=== PATIENT | female | born 1990 | race Caucasian/White ===

== ENCOUNTER 2021-02-04 14:26 | Outpatient (REF) | payer OTHER, SELFPAY ==
[2021-02-05 09:44] LABS: BV Int Neg Control Negative (Negative); BV Int Pos Control Positive (Positive)
== END 2021-02-04 14:27 | disposition home or self-care (01) ==
LOC: HO.LAB 14:26
PROVIDERS: Visit Provider Advanced Practice Midwife
DX: Z01.411 Encounter for gynecological examination (general) (routine) with abnormal findings (principal); N89.8 Other specified noninflammatory disorders of vagina
CPT/HCPCS: 87480; 87510; 87660; 88142

== ENCOUNTER 2022-02-06 15:24 | Outpatient (REF) | payer OTHER, SELFPAY ==
[2022-02-07 08:34] LABS: BV Int Neg Control Negative (Negative); BV Int Pos Control Positive (Positive)
== END 2022-02-06 15:25 | disposition home or self-care (01) ==
LOC: HO.LAB 15:24
PROVIDERS: Visit Provider Advanced Practice Midwife
DX: N76.0 Acute vaginitis (principal)
CPT/HCPCS: 87480; 87510; 87660

== ENCOUNTER 2023-02-11 14:28 | Outpatient (REF) | payer OTHER, SELFPAY ==
[2023-02-14 00:59] LABS: HPV mRNA E6/E7 rflx Not Detected (Not Detected)
== END 2023-02-11 14:29 | disposition home or self-care (01) ==
LOC: HO.LNP 14:28
PROVIDERS: Visit Provider Advanced Practice Midwife
DX: Z01.419 Encounter for gynecological examination (general) (routine) without abnormal findings (principal); R10.9 Unspecified abdominal pain; R21 Rash and other nonspecific skin eruption; Z97.5 Presence of (intrauterine) contraceptive device
CPT/HCPCS: 87624; 88142

== ENCOUNTER 2023-02-27 10:31 | Outpatient (REF) | payer OTHER, SELFPAY ==
--- NOTE | ~2023-02-27 | US_ITS ---
EXAMINATION: US PELVIS CLINICAL INFORMATION: Pelvic and perineal pain. COMPARISON: 02/10/2020 TECHNIQUE: Ultrasound of the pelvis is performed using both transabdominal and transvaginal transducers along with Doppler. Transvaginal imaging is performed due to inadequate visualization transabdominally. FINDINGS: UTERUS: The uterus is anteverted and measures 8.0 x 4.3 x 5.2 cm. The double wall endometrial thickness is 8 mm. The uterus is smooth in contour and has normal myometrial echogenicity. No visible fibroid. Nabothian cysts present. IUD seen in place without abnormality appreciated. ADNEXA: Both ovaries are visualized. There is normal color flow to the adnexa. There is no ovarian torsion. There is a small to moderate amount of fluid seen within the cul-de-sac. Right ovary measures 2.9 x 2.8 x 2.6 cm. Volume of 11.5 mL. No right adnexal abnormality. Left ovary measures 3.2 x 3.4 x 2.5 cm. Volume of 14.2 mL. There is a simple cyst measuring 2.0 x 1.7 x 2.0 cm in size for which no followup is recommended. US/US pelvic and transvaginal IMPRESSION: Small to moderate amount of fluid within the cul-de-sac. Simple appearing left ovarian cyst. Intrauterine device appears in good position.
== END 2023-02-27 10:32 | disposition home or self-care (01) ==
LOC: HO.US 10:31
PROVIDERS: Visit Provider Advanced Practice Midwife
DX: R10.2 Pelvic and perineal pain (principal)
CPT/HCPCS: 76830; 76856

== ENCOUNTER 2023-04-21 09:20 | Outpatient (AMB) | payer OTHER, SELFPAY ==
[2023-04-21 09:23] VITALS: BP 96/60; BMI 27.2
--- NOTE | 2023-04-21 09:23 | A.OFFVIS_ITS ---
Intake Vital Signs 04/21/23 09:23 Height 5 ft 6.9 in Weight 173 lb BMI 27.2 BP 96/60 Intake Visit Reasons: Ultrasound Results Intake Note: The patient agreed to use of a medical transcription radiology during this encounter. Scribed for JOSE Ludwig by Aidee Bhakta medical transcription radiology, on 04/21/2023. Allergies No Known Allergies [No Known Allergies*] Allergy (Verified 04/21/23 09:26) Is last menstrual period known: Yes Last menstrual period: 03/28/23 HPI HPI Comments History of Present Illness Details Patient is here for US results due to a history of right sided lower abdominal pain. She reports right sided pain at times is very intense. She denies any constipation, GI changes, n/v, fever. She feels this could be her appendix. She has booked a follow up with her PCP for these concerns. PFSH Surgical History Hx of section Hx of hand surgery Family History Maternal Grandmother Diabetes Hypertension Social History Alcohol intake: current Alcohol intake frequency: holidays/special occasions only Patient Tobacco Use Status: Never used Tobacco Current occupational status: employed Current occupational exposures/hazards: No (right handed) Sexual orientation: Straight/Heterosexual Gender identity: Female Female Reproductive History Menstrual Date of last menstrual period: 03/28/23 Physical Exam Vital Signs: Last Vital Signs BP 96/60 04/21/23 09:23 BMI result Body Mass Index 27.2 Const General: cooperative, healthy appearing, comfortable, no acute distress, well developed, alert and awake Results Reviewed Results Reviewed: EXAMINATION:? US PELVIS CLINICAL INFORMATION:? Pelvic and perineal pain. COMPARISON: 02/10/2020 TECHNIQUE: Ultrasound of the pelvis is performed using both transabdominal and transvaginal transducers along with Doppler. Transvaginal imaging is performed due to inadequate visualization transabdominally. FINDINGS: UTERUS: The uterus is anteverted and measures 8.0 x 4.3 x 5.2 cm. The double wall endometrial thickness is 8 mm.? The uterus is smooth in contour and has normal myometrial echogenicity. No visible fibroid. Nabothian cysts present. IUD seen in place without abnormality appreciated. ADNEXA: Both ovaries are visualized. There is normal color flow to the adnexa. There is no ovarian torsion.? There is a small to moderate amount of fluid seen within the cul-de-sac. Right ovary measures 2.9 x 2.8 x 2.6 cm. Volume of 11.5 mL. No right adnexal abnormality. Left ovary measures 3.2 x 3.4 x 2.5 cm. Volume of 14.2 mL. There is a simple cyst measuring 2.0 x 1.7 x 2.0 cm in size for which no followup is recommended. US/US pelvic and transvaginal IMPRESSION: Small to moderate amount of fluid within the cul-de-sac. ? Simple appearing left ovarian cyst. ? Intrauterine device appears in good position. Assessment & Plan Assessment & Plan (1) Encounter to discuss test results: Code(s): Z71.2 - Person consulting for explanation of examination or test findings Plan: Discussed: US findings: Small to moderate amount of fluid within the cul-de-sac. Simple appearing left ovarian cyst-no need for a follow up on this cyst. Intrauterine device appears in good position. All of her questions and concerns were addressed to the best of my ability and shared decision making. She is agreeable to plan of care. (2) Pelvic pain: Code(s): R10.2 - Pelvic and perineal pain Plan: Follow up with PCP regarding pelvic pain. (3) Ovarian cyst: Code(s): N83.209 - Unspecified ovarian cyst, unspecified side (4) IUD surveillance: Code(s): Z30.431 - Encounter for routine checking of intrauterine contraceptive device Coding Level of Care Code Est Pt Level 3 (96818) Diagnoses Encounter to discuss test results Z71.2 Pelvic pain R10.2 Ovarian cyst N83.209 IUD surveillance Z30.431
== END 2023-04-21 09:49 | disposition home or self-care (01) ==
LOC: HO.HWS 09:20
PROVIDERS: Visit Provider Advanced Practice Midwife
DX: Z71.2 Person consulting for explanation of examination or test findings (principal); R10.2 Pelvic and perineal pain; N83.209 Unspecified ovarian cyst, unspecified side; Z30.431 Encounter for routine checking of intrauterine contraceptive device
CPT/HCPCS: 99213

== ENCOUNTER → 2023-04-21 09:20 | Outpatient (BNVA) | payer OTHER, SELFPAY | PROVIDERS: Visit Provider Advanced Practice Midwife | DX: Z71.2 Person consulting for explanation of examination or test findings (principal); R10.2 Pelvic and perineal pain; N83.202 Unspecified ovarian cyst, left side; Z30.431 Encounter for routine checking of intrauterine contraceptive device | CPT/HCPCS: 99212 ==

== ENCOUNTER 2023-04-29 08:32 | Outpatient (AMB) | payer OTHER, SELFPAY ==
[2023-04-29 08:35] VITALS: BP 98/54; PULSE 60; O2SAT 98; BMI 26.9
--- NOTE | 2023-04-29 08:35 | A.OFFPC_ITS ---
Vital Signs 04/29/23 08:35 Height 5 ft 6.9 in Weight 171 lb BMI 26.9 BP 98/54 L Blood Pressure Location Lt brachial Position Sitting Pulse 60 Pulse Source Pulse Oximeter Temp Source Skin Pulse Oximetry (%) 98 Oxygen Delivery Method Room Air Intake Visit Reasons: New patient-requesting physical Agency Service Coordinator Required: No Allergies No Known Allergies [No Known Allergies*] Allergy (Verified 04/29/23 08:43) Medication List - Last Reconciled 04/29/23 by VALENTINO Tamez clotrimazole 1% 1 appl topical BID copper (ParaGard T 380A) intrauterine Tobacco use date assessed: 04/29/23 Dental Screening Dental Screen Date: 04/29/23 Did you have a dental visit in the last 12 months?: Yes Did you have a dental problem in the last 6 months where you did not have access to dental care?: No Was dental information given to patient?: Patient has dentist HPI New patient-requesting physical HPI Details Patient is a 33-year-old female presents today for physical exam as a new patient. Previous PCP in [place] 3 years ago. Pap smear 01/2023 with [facility]. Patient has declined tetanus vaccine. Patient reports since giving to her children she started with low blood pressures intermittently, reports intermittent dizziness with low blood pressure. Denies shortness of breath, chest pain or dizziness in the office today. Reports intermittent left-sided chest pains that are random for the past 6 months. In addition, patient reports right lower quadrant intermittent pain for the past 6 months now, reports she was seen by her progressive care manager and she was told she has left ovary cyst. Denies any fever, chills, nausea/vomiting, diarrhea/constipation. Reports pain is not daily, sometimes no pain for weeks. Although feels pain intermittently in right lower quadrant. Denies any abdominal pain in the office today. PFSH Surgical History Hx of section Hx of hand surgery Family History Maternal Grandmother Diabetes Hypertension Social History Alcohol intake: current Alcohol intake frequency: holidays/special occasions only Patient Tobacco Use Status: Never used Tobacco Current occupational status: employed Current occupational exposures/hazards: No (right handed) Sexual orientation: Straight/Heterosexual Gender identity: Female Cognitive needs: No Hearing needs: No Vision needs: No Questionnaire PHQ-9 Over the last 2 weeks, how often have you been bothered by any of the following problems? 1. Little interest or pleasure in doing things: not at all 2. Feeling down, depressed, or hopeless: not at all 3. Trouble falling or staying asleep, or sleeping too much: not at all 4. Feeling tired or having little energy: not at all 5. Poor appetite or overeating: not at all 6. Feeling bad about yourself - or that you are a failure or have let yourself or your family down: not at all 7. Trouble concentrating on things, such as reading the newspaper or watching television: not at all 8. Moving or speaking so slowly that other people could have noticed. Or the opposite - being so fidgety or restless that you have been moving around a lot more than usual: not at all 9. Thoughts that you would be better off or of hurting yourself in some way: not at all Total score: 0 Depression Screening Interpretation: Negative 06243 - PHQ-9 Billing: Yes Source: Developed by Drs. Jim Simon, Nicole Herrera, Anil Whitmore and colleagues, with an educational melissa from [employer]. Thrive Questionnaire Date Thrive assessed: 04/29/23 I am a: Patient What is your living situation today?: I have a steady place to live Within the past 12 months, did the food you bought not last and you didn't have the money to get more?: Never true Within the past 12 months, did you worry whether your food would run out before you got money to buy more?: Never true Currently or been in a relationship where the following occur: no concerns reported AUDIT C Alcohol Use Questionnaire (AUDIT-C) 1. How often do you have a drink containing alcohol?: Never 3. How often do you have six or more drinks on one occasion?: Never Total Score: 0 Score Reviewed/Action Taken: No KEV-7 AMB Questionnaire KEV-7 Date KEV - 7 assessed: 04/29/23 Feeling nervous, anxious, or on edge: 0 = Not at all Not being able to stop or control worryin = Not at all Worrying too much about different things: 0 = Not at all Trouble relaxin = Not at all Being so restless that it is hard to sit still: 0 = Not at all Becoming easily annoyed or irritable: 0 = Not at all Feeling afraid as if something awful might happen: 0 = Not at all Total KEV-7 score (0-4 normal; 5-9 mild; 10-14 moderate; 15-21 severe): 0 Source: Developed by Drs. Jim Simon, Nicole Herrera, Anil Whitmore and colleagues, with an educational melissa from [employer]. KEV-7 Assessment Billing KEV-7 Assessment Tool: KEV-7 Assessment 90631 Review of Systems Const Denies body aches, Denies chills, Denies fever(s) and Denies headache(s) Eyes Denies change in vision ENT Denies dizziness, Denies otalgia, Denies headache(s), Denies nasal discharge, Denies sinus pain and Denies sore throat Card Reports as per HPI, Denies chest pain, Denies edema, Denies lightheadedness and Denies dyspnea Resp Denies cough, Denies dyspnea and Denies wheezing GI Reports abdominal pain (Intermittent, not now), Denies constipation, Denies diarrhea, Denies nausea and Denies vomiting Denies dysuria Musc Denies myalgias, Denies numbness and Denies tingling Skin/Breast Denies rash Neuro Denies dizziness, Denies headache(s), Denies numbness and Denies tingling Aller/Immun Denies wheezing Physical exam (Primary Care) Vital Signs: Last Vital Signs Pulse 60 04/29/23 08:35 BP 98/54 L 04/29/23 08:35 Pulse Ox 98 04/29/23 08:35 Oxygen Delivery Method Room Air 04/29/23 08:35 BMI result Body Mass Index 26.9 Tobacco/Smoking Status: Tobacco use Status Tobacco use date assessed 04/29/23 04/29/23 08:40 Patient Tobacco Use Status Never used Tobacco 04/29/23 08:40 PHQ-9: PHQ-9 Score PHQ-9: Total score 0 04/29/23 08:48 Depression Screening Interpretation: Negative Thrive Assessment: Date of Thrive Assessment Date Thrive assessed 04/29/23 04/29/23 08:40 Currently or been in a relationship where the following occur: no concerns reported Const General: cooperative and no acute distress Orientation/consciousness: patient oriented x3 HENMT Head: Yes normocephalic and Yes atraumatic Ears: TM's normal bilaterally Face and sinus: Yes sinuses nontender Mouth: oropharynx normal and moist mucous membranes Throat: Yes posterior oropharynx normal Eyes General: appearance normal, both eyes and all related structures Pupils: Equal, round and reactive pupils present EOM: EOMs intact bilaterally Neck Neck: Yes normal visual inspection, Yes full ROM and Yes no lymphadenopathy Thyroid: Thyroid normal Resp Effort & Inspection: normal respiratory effort and able to speak in complete sentences Auscultation: clear to auscultation bilaterally, no crackles, no rales, no rhonchi and no wheezes Cardio Rate: regular rate Rhythm: regular rhythm Heart sounds: S1 normal heart sound present, S2 normal heart sound present and no murmurs GI Palpation (GI): Soft to palpation, not firm, nontender, no guarding, not rigid, no hepatosplenomegaly and No Rebound tenderness present Auscultation: normal bowel sounds General: No CVA tenderness Back/Spine/Pelvis Back: No CVA tenderness Skin General skin exam: no rashes or lesions noted Neuro General: patient oriented x3 Cranial nerves: Yes Equal, round and reactive pupils present Gait exam (Neuro): Normal gait present Extrem General: Yes full ROM and No edema Assessment and Plan Assessment & Plan (1) Hypotension: Code(s): I95.9 - Hypotension, unspecified Plan: Patient denies shortness of breath, dizziness, lightheadedness, or chest pain in the office today, she reports intermittent left-sided random chest pains Will obtain EKG and refer to Cardiology for an evaluation (2) Adult general medical exam: Code(s): Z00.00 - Encounter for general adult medical examination without abnormal findings Plan: Repeat in 1 year Blood work ordered (3) RLQ abdominal pain: Code(s): R10.31 - Right lower quadrant pain Plan: Physical exam with no acute findings in the office today. Will obtain urgent appendix ultrasound. Signs and symptoms reviewed when to go to the emergency department. Patient agreed with the plan Orders: Orders Vitamin B12 and Folate Today Z00.00 - Encounter for general adult medical examination without abnormal findings Comprehensive [place]. Panel Fast Today Z00.00 - Encounter for general adult medical examination without abnormal findings Lipid Panel Today Z00.00 - Encounter for general adult medical examination without abnormal findings TSH reflex Free T4 Today Z00.00 - Encounter for general adult medical examination without abnormal findings Vitamin D 25-OH Total Today Z00.00 - Encounter for general adult medical examination without abnormal findings Complete Blood Count Auto Diff Today Z00.00 - Encounter for general adult medical examination without abnormal findings US appendix Today R10.31 - Right lower quadrant pain ECG 12 lead EKG Today I95.9 - Hypotension, unspecified Referrals Cardiology Referral I95.9 - Hypotension, unspecified Coding Level of Care Code New Pt Prev Care 18-39yr([id number] Diagnoses Hypotension I95.9 Adult general medical exam Z00.00 RLQ abdominal pain R10.31 Additional Codes KEV-7 Assessment Billing - KEV-7 Assessment Tool: KEV-7 Assessment 00138 ([id number])
== END 2023-04-29 09:03 | disposition home or self-care (01) ==
PROVIDERS: Visit Provider Nurse Practitioner Family
DX: I95.9 Hypotension, unspecified (principal); Z00.00 Encounter for general adult medical examination without abnormal findings; R10.31 Right lower quadrant pain
CPT/HCPCS: 99385

== ENCOUNTER 2023-05-01 09:08 | Outpatient (REF) | payer OTHER, SELFPAY ==
[2023-05-01 09:30] LABS: MANUAL DIFF FLAG NO
[2023-05-01 09:39] LABS: Basophils Absolute Auto 0.1 X10*3/uL (0.0-0.2); Basophils Percent Auto 1.2 % (0-2); Eosinophils Absolute Auto 0.1 X10*3/uL (0.0-0.4); Eosinophils Percent Auto 1.6 % (0-4); Hematocrit 40.6 % (37.0-47.0); Hemoglobin 13.3 g/dl (12.0-16.0); Imm Gran Abs Auto 0.01 X10*3/uL (0.00-0.03); Imm Gran Pct Auto 0.2 % (0.0-0.4); Lymphocytes Absolute Auto 1.3 X10*3/uL (1.2-4.9); Lymphocytes Percent Auto 30.3 % (20-40); Mean Corpuscular HGB Conc 32.8 g/dl (31.0-35.0); Mean Corpuscular Hemoglobin 29.9 pg (27.0-33.0); Mean Corpuscular Volume 91.2 fL (80.0-98.0); Mean Platelet Volume 9.3 fL (9.4-12.3); Monocytes Absolute Auto 0.4 X10*3/uL (0.1-1.2); Monocytes Percent Auto 8.1 % (2-11); Neutrophils Absolute Auto 2.5 x10*3/uL (2.0-8.3); Neutrophils Percent Auto 58.6 % (45-73); Platelet Count 197 X10*3/uL (160-400); Red Blood Count 4.45 X10*6/uL (4.20-5.50); Red Cell Distribution Width 11.9 % (11.0-16.0); White Blood Count 4.3 X10*3/uL (4.8-10.8)
[2023-05-01 10:18] LABS: Alanine Aminotransferase 20 U/L (0-31); Albumin Level 4.7 g/dL (3.5-5.0); Alkaline Phosphatase 59 U/L (39-117); Anion Gap 10 (12-20); Aspartate Amino Transferase 18 U/L (5-31); Bilirubin Total 0.8 mg/dL (0.0-1.0); Blood Urea Nitrogen 13 mg/dL (9-16); Calcium 9.7 mg/dL (8.4-10.2); Carbon Dioxide 28 mmol/L (22-29); Chloride 105 mmol/L (96-108); Cholesterol 188 mg/dL (<200); Estimated Glomerular Filt Rate > 60; Glucose Fasting 90 mg/dL (60-99); HDL Cholesterol 54 mg/dL (>40); LDL Cholesterol Calculated 123 mg/dL (<100); Potassium 4.4 mmol/L (3.3-5.1); Sodium 139 mmol/L (135-145); Total Protein 7.6 g/dL (6.5-8.0); Triglycerides 57 mg/dL (<150)
[2023-05-01 10:42] LABS: TSH reflex Free T4 2.28 uIU/mL (0.32-4.0); Vitamin D 25-OH Total 30.6 ng/mL (>30)
[2023-05-01 10:52] LABS: Folate 14.2 ng/mL (> or = 4.0); Vitamin B12 474 pg/mL (200-900)
== END 2023-05-01 09:09 | disposition home or self-care (01) ==
LOC: HO.LAB 09:08
PROVIDERS: PCP Nurse Practitioner Family; Visit Provider Nurse Practitioner Family
DX: Z00.00 Encounter for general adult medical examination without abnormal findings (principal)
CPT/HCPCS: 36415; 80053; 80061; 82306; 82607; 82746; 84443; 85025

== ENCOUNTER 2023-05-02 09:52 | Outpatient (REF) | payer OTHER, SELFPAY ==
--- NOTE | ~2023-05-02 | US_ITS ---
EXAMINATION: Ultrasound appendix. CLINICAL HISTORY: Right lower quadrant pain comparison: None. TECHNIQUE: Limited ultrasound imaging to the right lower quadrant was performed. FINDINGS: Imaging through the right lower quadrant was performed with no visualization of appendix seen at this time. No solid mass or free fluid. US/US appendix IMPRESSION: Unremarkable ultrasound right lower quadrant. Appendix is not seen.
== END 2023-05-02 09:53 | disposition home or self-care (01) ==
LOC: HO.US 09:52
PROVIDERS: PCP Nurse Practitioner Family; Visit Provider Nurse Practitioner Family
DX: R10.31 Right lower quadrant pain (principal)
CPT/HCPCS: 76705

== ENCOUNTER 2023-07-04 14:31 | Emergency (ER) | payer OTHER, SELFPAY ==
--- NOTE | ~2023-07-04 | CT_ITS ---
EXAMINATION: CT ABDOMEN AND PELVIS WITH CONTRAST CLINICAL INFORMATION: Right lower quadrant tenderness. COMPARISON: Appendiceal ultrasound 05/02/2023. TECHNIQUE: Multidetector volumetric images were obtained from the superior aspect of the liver through the pubic symphysis following administration 85 mL of Omnipaque 350 intravenous contrast. Sagittal and coronal reformatted images were obtained on the technologist's workstation. Oral contrast: No This CT examination was performed using dose optimization techniques as appropriate, variously including the following: *Automated exposure control *Adjustment of mA and/or kV according to patient size (this includes techniques or standardized protocols for targeted exams where dose is matched to indication/reason for exam; i.e. extremities or head) *Use of iterative reconstruction technique DLP: 600 mGy-cm FINDINGS: LUNG BASES: No focal consolidation or pleural effusion. LIVER, GALLBLADDER, AND BILIARY TREE: The liver is normal in size, shape, and attenuation. Multiple liver lesions, some measuring higher than simple fluid in attenuation, not consistent with simple cysts, and others that are too small to characterize for example largest measuring 1.2 cm and 1.3 cm in the left hepatic lobe (3:19 and 3:11). No biliary ductal dilatation is present. The gallbladder is unremarkable with no evidence of radiopaque gallstones, gallbladder wall thickening, or obvious pericholecystic inflammatory changes. PANCREAS: Unremarkable. SPLEEN: Unremarkable. ADRENAL GLANDS: Unremarkable. KIDNEYS AND URETERS: The kidneys are normal in size, shape, and attenuation. A few too small to characterize cortical hypodensities in the left kidney, favoring to represent simple cysts, for which no imaging follow-up is recommended. No hydronephrosis, hydroureter, or calculi seen. No perinephric stranding. BLADDER: Unremarkable. GASTROINTESTINAL TRACT: Slightly prominent fluid-filled distended loops of small bowel with associated mesenteric vasculature engorgement and minimal mesenteric haziness. No disproportionate dilatation to suspect bowel obstruction. Normal appendix. No pericolonic fat stranding or free fluid. ABDOMINAL WALL: No significant hernia is appreciated. LYMPH NODES: No lymphadenopathy. VASCULAR: Normal caliber abdominal aorta. PELVIC VISCERA: IUD centered in the endometrial canal. Symmetric ovaries. OSSEOUS STRUCTURES: Unremarkable. CT/CT abdomen pelvis w IV con IMPRESSION: 1. Mildly prominent fluid-filled distended loops of small bowel with subtle associated mesenteric vasculature engorgement and haziness that could be seen in the context of gastroenteritis. 2. Normal appendix. 3. Multiple liver lesions, some measuring higher than simple fluid in attenuation, not consistent with simple cysts, and others that are too small to characterize. In a patient of this age, these most likely represent benign lesions such as hemangiomas, however further characterization with outpatient MRI abdomen with and without IV contrast is recommended.
[2023-07-04 14:34] VITALS: BP 103/62; PULSE 58; RESP 19; TEMP 36.4; O2SAT 97; BMI 27.7
--- NOTE | 2023-07-04 14:34 | ED.ABDPAIN ---
HPI - Abdominal Pain General Chief Complaint: Abdominal Pain Stated Complaint: abd pain Time Seen by Provider: 07/04/23 16:59 Source: patient Mode of arrival: ambulatory Limitations: no limitations History of Present Illness HPI narrative: Patient is a 33-year-old female with history of hypo tension presenting the emergency department with complaint of intermittent right lower quadrant pain for the last 6 months. Patient has seen her PCP, had a an ultrasound 1 month ago was told she did not have appendicitis. States she also saw her OBGYN and had a pelvic exam and was told everything was normal at that time as well. Denies any concern for STIs or new sexual partners. Denies any abnormal vaginal discharge. Rates current pain at 3 or 4/10 but states pain can become severe at times. She denies any nausea, vomiting, diarrhea, constipation. She denies any dysuria, hematuria, frequency or other urinary symptoms. Denies fevers. Denies any back or flank pain. MD elicited complaint: abdominal pain Onset (ago): month(s) Pain Consistency: intermittent Location: RLQ Severity: mild Pain scale (0-10): 4 Quality: sharp Radiation: none Migration to: no migration Exacerbating factors: nothing Relieving factors: nothing Associated symptoms: denies other symptoms Related Data Home Medications Medication Instructions Recorded Confirmed copper 380 square mm intrauterine intrauterine 02/06/22 04/29/23 device (ParaGard T 380A) Previous Rx's Medication Instructions Recorded clotrimazole 1 % topical cream 1 appl topical BID #45 grams 02/11/23 Allergies Allergy/AdvReac Type Severity Reaction Status Date / Time No Known Allergies Allergy Verified 04/29/23 08:43 [No Known Allergies*] Review of Systems Review of Systems As per HPI. Yes all other systems are reviewed and are negative Constitutional: Reports as per HPI PMFSH Past Medical History Surgical History Hx of section Hx of hand surgery Family History Family History Maternal Grandmother Diabetes Hypertension Social History Social History Alcohol intake: never Patient Tobacco Use Status: Never used Tobacco Smoked in Last 30 Days: No Use of substances other than those prescribed or required for medical reasons: No Advance Directives: No Advance Directives Information Provided: No Patient : No Current occupational status: employed Current occupational exposures/hazards: No (right handed) Sexual orientation: Straight/Heterosexual Gender identity: Female Cognitive needs: No Hearing needs: No Vision needs: No Physical Exam ED Vital Signs: Vital Signs - 24 hr 07/04/23 14:34 07/04/23 16:06 07/04/23 17:25 Temperature 97.6 F 98.0 F Pulse Rate 58 61 56 Respiratory Rate 19 16 16 Blood Pressure 103/62 107/58 L 96/63 Pulse Oximetry 97 99 98 Oxygen Delivery Method Room Air Room Air Room Air BMI result Body Mass Index 27.7 Vital signs have been reviewed and appear to be correct. Blood pressure normal. Heart rate normal. Respiratory rate normal. Temperature normal. Oxygen saturation normal. Const General: cooperative, healthy appearing and no acute distress Orientation/consciousness: oriented to person, oriented to place, oriented to time and patient oriented x3 Limitations: no limitations HENMT Head: Yes normocephalic and Yes atraumatic Ears: external ears normal General nose exam: Normal external nose present Face and sinus: Yes face symmetric Mouth: oropharynx normal and moist mucous membranes Throat: Yes uvula midline Eyes Pupils: Equal, round and reactive pupils present Neck Neck: Yes normal visual inspection and Yes supple Resp Effort & Inspection: normal respiratory effort and able to speak in complete sentences Auscultation: clear to auscultation bilaterally Cardio Rate: regular rate Rhythm: regular rhythm Heart sounds: S1 normal heart sound present and S2 normal heart sound present GI Inspection: Yes normal to inspection Palpation (GI): Soft to palpation, Tenderness to palpation present (GI) in the RLQ, no guarding and No Rebound tenderness present Auscultation: normoactive bowel sounds General: Yes no CVA tenderness Back/Spine/Pelvis Back: no CVA tenderness Skin General skin exam: elasticity normal and turgor normal Neuro General: oriented to person, oriented to place, oriented to time, patient oriented x3, moves all extremities, no focal motor deficits and CN's II-XI intact bilaterally Cranial nerves: Yes Equal, round and reactive pupils present Cognition (Neuro): normal cognition Extrem General: Yes full ROM, Yes no pedal edema and Yes no calf tenderness Psych Mental Status: mental status grossly normal Affect: normal affect Thought process: Normal thought process present Course Course Course Narrative: This is a rapid medical exam. deferred additional HPI, ROS, PE to primary provider. 33 yo female here with complaints of right lower quadrant pain x 6 months. Seen outpatient by PCP and had appendix US which was negative per patient. No other associated symptoms. LMP 06/04 Will obtain labs, UA VSS Medical Decision Making Medical Decision Making [facility] Narrative: Patient is a 33-year-old female with history of hypo tension presenting the emergency department with complaint of intermittent right lower quadrant pain for the last 6 months. On exam patient is awake, A+Ox3, VS WNL, afebrile, normal neurological exam without focal deficits, physical exam findings as above. Given reported symptoms and physical exam findings, initial differential includes UTI, appendicitis, ovarian cyst, UTI, constipation. Low suspicion for STI as patient recently tested and denies new partners, is declining additional pelvic exam. Unlikely ovarian torsion, PID, TOA. Labs notable for no leukocytosis or anemia, no evidence of FRANCA. Urine shows 1+ leukocytes, trace bacteria, negative nitrites. CT notable for mildly prominent fluid-filled distended loops of small bowel, normal appendix, multiple liver lesions. My interpretation is in agreement with the radiologist's interpretation. Results discussed with patient and all questions answered. Given ongoing nature symptoms, unlikely gastroenteritis, no evidence of appendicitis. Feel patient is stable for discharge home with PCP follow-up. Will refer to GI for further evaluation of liver lesions. Return precautions discussed. Patient verbalized understanding of and agreement with plan. Differential Diagnosis Differential Diagnoses: The differential diagnosis associated with the presentation includes As per [facility]. Lab Data [facility] Lab Attestation statement: I reviewed the patient's lab results. As per [facility]. 07/04/23 14:45 07/04/23 14:45 Labs: Lab Results 07/04/23 Range/Units 14:45 WBC 6.1 (4.8-10.8) X10*3/uL RBC 4.47 (4.20-5.50) X10*6/uL Hgb 13.4 (12.0-16.0) g/dl Hct 39.7 (37.0-47.0) % MCV 88.8 (80.0-98.0) fL MCH 30.0 (27.0-33.0) pg MCHC 33.8 (31.0-35.0) g/dl RDW 11.9 (11.0-16.0) % Plt Count 193 (160-400) X10*3/uL MPV 9.2 L (9.4-12.3) fL Immature Gran % (Auto) 0.2 (0.0-0.4) % Neut % (Auto) 62.9 (45-73) % Lymph % (Auto) 28.8 (20-40) % Maury % (Auto) 6.5 (2-11) % Eos % (Auto) 1.3 (0-4) % Baso % (Auto) 0.3 (0-2) % Lymph # (Auto) 1.8 (1.2-4.9) X10*3/uL Maury # (Auto) 0.4 (0.1-1.2) X10*3/uL Eos # (Auto) 0.1 (0.0-0.4) X10*3/uL Baso # (Auto) 0.0 (0.0-0.2) X10*3/uL Abs Immat Gran (auto) 0.01 (0.00-0.03) X10*3/uL Absolute Neuts (auto) 3.9 (2.0-8.3) x10*3/uL Absolute Nucleated RBC 0.000 (0.0-0.012) X10*3/uL Nucleated RBC % (auto) 0.0 (0.0-0.2) /100WBC Sodium 140 (135-145) mmol/L Potassium 4.2 (3.3-5.1) mmol/L Chloride 103 (96-108) mmol/L Carbon Dioxide 28 (22-29) mmol/L Anion Gap 13 (12-20) BUN 13 (9-16) mg/dL Creatinine 0.83 (0.5-1.4) mg/dL Estim Creat Clear Calc 106.9 Estimated GFR > 60 Random Glucose 124 H (60-115) mg/dL Calcium 10.0 (8.4-10.2) mg/dL Total Bilirubin 0.4 (0.0-1.0) mg/dL Direct Bilirubin 0.2 (0.0-0.5) mg/dL AST 16 (5-31) U/L ALT 16 (0-31) U/L Alkaline Phosphatase 76 (39-117) U/L Total Protein 8.0 (6.5-8.0) g/dL Albumin 4.8 (3.5-5.0) g/dL Urine Color Yellow Urine Appearance Clear Urine pH 5.5 (5.0-9.0) Ur Specific [place] 1.020 (1.005-1.025) Urine Protein Negative (Neg-Trace) mg/dL Urine Glucose (UA) Negative (Negative) mg/dL Urine Ketones Negative (Negative) mg/dL Urine Blood Negative (Negative) Urine Nitrite Negative (Negative) Ur Leukocyte Esterase Small (1+) H (Negative) Urine RBC 0-2 (0-2) /HPF Urine WBC 11-20 H (0-5) /HPF Ur Squamous Epith Cells 11-20 (0-2) /HPF Urine Bacteria Trace (None Seen) Hyaline Casts 0-2 (0-2) /LPF Urine Test NEGATIVE (NEGATIVE) Independent Interpretation I performed an independent interpretation of an: CT Scan Interpretation: No evidence of appendicitis, liver lesions noted Radiology Impression Discussion of test interpretation with radiology: I have reviewed the radiologist's reading. Radiologist Impression: CT/CT abdomen pelvis w IV con IMPRESSION: 1. Mildly prominent fluid-filled distended loops of small bowel with subtle associated mesenteric vasculature engorgement and haziness that could be seen in the context of gastroenteritis. 2. Normal appendix. 3. Multiple liver lesions, some measuring higher than simple fluid in attenuation, not consistent with simple cysts, and others that are too small to characterize. In a patient of this age, these most likely represent benign lesions such as hemangiomas, however further characterization with outpatient MRI abdomen with and without IV contrast is recommended. External Record Review External record reviewed: Inpatient record, Office record and Outpatient record Medications Administered Discontinued Medications Generic Name Dose Route Start Last Admin Trade Name Freq PRN Reason Stop Dose Admin Iohexol 100 ml 07/04/23 19:16 07/04/23 19:16 Iohexol 350 Mg/Ml 100 Ml Infus..Btl IV 07/04/23 19:17 85 ml ONCE ONE Administration Discharge Plan Discharge Clinical Impression: Abdominal pain Patient Disposition: Home, Self-Care Instructions: Abdominal Pain (ED) Additional Instructions: You have been evaluated in the emergency department today for abdominal pain. Your evaluation did not show evidence of medical conditions requiring emergent intervention at this time. Please schedule an appointment with your primary care physician. Return to the emergency department if you experience worsening or uncontrolled pain, fevers 100.4? F or greater, recurrent vomiting, inability to tolerate food or fluids by mouth, bloody stools or vomit, black or tarry stools, or any other concerning symptoms. You are being referred to Gastroenterology for further evaluation of lesions noted on your liver on your CT scan. Please call them to make an appointment. Prescriptions: No Action ParaGard T 380A 380 square mm intrauterine device intrauterine clotrimazole 1 % cream 1 appl topical BID Qty: 45 0RF Rx Instructions: apply a thin coat to the area, use for up to two weeks until the rash has cleared Referrals: [facility] G[facility]enterology Services [Provider Group]
[2023-07-04 14:48] LABS: MANUAL DIFF FLAG NO
[2023-07-04 14:55] LABS: Appearance Urine Clear; Color Urine Yellow; Glucose Urine UA Negative (Negative); Leukocyte Esterase Urine Small (1+) (Negative); Nitrite Urine Negative (Negative); PH 5.5 (5.0-9.0); UMIC TRIGGER UACC YES; Urine Blood Negative (Negative); Urine Ketones Negative (Negative); Urine Protein Negative (Neg-Trace)
[2023-07-04 14:56] LABS: Basophils Percent Auto 0.3 % (0-2); Eosinophils Absolute Auto 0.1 X10*3/uL (0.0-0.4); Eosinophils Percent Auto 1.3 % (0-4); Hematocrit 39.7 % (37.0-47.0); Hemoglobin 13.4 g/dl (12.0-16.0); Imm Gran Abs Auto 0.01 X10*3/uL (0.00-0.03); Imm Gran Pct Auto 0.2 % (0.0-0.4); Lymphocytes Absolute Auto 1.8 X10*3/uL (1.2-4.9); Lymphocytes Percent Auto 28.8 % (20-40); Mean Corpuscular HGB Conc 33.8 g/dl (31.0-35.0); Mean Corpuscular Volume 88.8 fL (80.0-98.0); Mean Platelet Volume 9.2 fL (9.4-12.3); Monocytes Absolute Auto 0.4 X10*3/uL (0.1-1.2); Monocytes Percent Auto 6.5 % (2-11); Neutrophils Absolute Auto 3.9 x10*3/uL (2.0-8.3); Neutrophils Percent Auto 62.9 % (45-73); Platelet Count 193 X10*3/uL (160-400); Red Blood Count 4.47 X10*6/uL (4.20-5.50); Red Cell Distribution Width 11.9 % (11.0-16.0); White Blood Count 6.1 X10*3/uL (4.8-10.8)
[2023-07-04 14:59] LABS: UPreg QC Valid YES; Urine Pregnancy NEGATIVE (NEGATIVE)
[2023-07-04 15:01] LABS: Bacteria Urine Trace (None Seen); Hyaline Casts Urine 0-2 /LPF (0-2); RBC Urine 0-2 /HPF (0-2); UACC Culture Trigger YES
[2023-07-04 15:05] LABS: Alanine Aminotransferase 16 U/L (0-31); Albumin Level 4.8 g/dL (3.5-5.0); Alkaline Phosphatase 76 U/L (39-117); Anion Gap 13 (12-20); Aspartate Amino Transferase 16 U/L (5-31); Bilirubin Direct 0.2 mg/dL (0.0-0.5); Bilirubin Total 0.4 mg/dL (0.0-1.0); Blood Urea Nitrogen 13 mg/dL (9-16); Carbon Dioxide 28 mmol/L (22-29); Chloride 103 mmol/L (96-108); Creatinine Clr Calc Pharmacy 106.9; Estimated Glomerular Filt Rate > 60; Glucose Random 124 mg/dL (60-115); Potassium 4.2 mmol/L (3.3-5.1); Sodium 140 mmol/L (135-145)
[2023-07-04 16:06] VITALS: BP 107/58; PULSE 61; RESP 16; TEMP 36.7; O2SAT 99
--- NOTE | 2023-07-04 16:10 | PC.NURSE ---
a&ox3, vss and up to date at this time aside from hypotension. pt states she has a hx of hypotension. pt comes in today d/t and increase in RLQ/groin pain that has occurred for the past 6 months. pt currently verbalizing no pain at this time. denies n/v/d/urinary sx/kidney stones/cysts. pt states that she saw her pcp where she has an ultrasound completed. US was clear. abdomen tender upon palpation. normoactive bs noted upon auscultation. pt resting in no apparent distress at this time. respirations even and unlabored. call linn placed within reach.
[2023-07-04 17:25] VITALS: BP 96/63; PULSE 56; RESP 16; O2SAT 98
--- NOTE | 2023-07-04 17:30 | PC.NURSE ---
vss and up to date at this time. pt verbalizing RLQ abdominal pain increased to a 3/10 at this time. resting comfortably in no apparent distress. respirations remain even and unlabored. call linn placed within reach.
--- NOTE | 2023-07-04 18:06 | PC.NURSE ---
20gIV placed in the right AC w/o complications. pt awaiting CT scan. pt aware of plan of care at this time.
--- NOTE | 2023-07-04 19:00 | PC.NURSE ---
pt to CT at this time.
[2023-07-04] MEDS: iohexoL 350 MG/ML 100 ML INFUS..BTL IV (19:16)
== END 2023-07-04 20:30 | disposition home or self-care (01) ==
PROVIDERS: Nurse Practitioner Family; Emergency Provider Student in an Organized Health Care Education/Training Program; PCP Nurse Practitioner Family
DX: R10.31 Right lower quadrant pain (principal)
CPT/HCPCS: 36415; 74177; 80048; 80076; 81001; 81025; 85025; 87086; 87088; 87186; 99284; Q9967

== ENCOUNTER 2023-07-06 13:03 | Outpatient (AMB) | payer OTHER, SELFPAY ==
--- NOTE | 2023-07-06 13:11 | MHC.PC.OV ---
Vital Signs 07/06/23 13:13 Height 5 ft 7 in Weight 172 lb 6 oz BMI 27.0 BP 110/70 Blood Pressure Location Lt brachial Position Sitting Pulse 58 Pulse Source Pulse Oximeter Pulse Oximetry (%) 98 Oxygen Delivery Method Room Air Intake Visit Reasons: [facility] [place] 07/04/23 Abdominal Pain Intake Note: Patient is here to follow-up after a visit the emergency department at [facility] on 07/04/23. Facility Service Manager Required: No Bearing Maker: Present Accompanied by: Child Allergies No Known Allergies [No Known Allergies*] Allergy (Verified 07/06/23 13:13) Tobacco use date assessed: 07/06/23 Dental Screening Dental Screen Date: 07/06/23 HPI HPI Comments History of Present Illness Details 33-year-old female past medical history significant for hypertension. Patient of Chrissy Mullen, presents today for emergency room follow-up on 07/04/2023 for right lower abdominal pain x6 months. U/S 1 month ago negative for appendicitis. Seen by her obgyn, normal pelvuc exam. Denies concerns for STIs. right lower quadrant pain for the last [address] completed in ER showed normal appendix, incidential finding of multiple liver lesions. Recommended follow up of MRI abdomen w/wo contrast. Order entered. Referral entered to GI. Urin culture in ER showed ecoli, Patient reports experiencing urinary frequency and report lower abdominal pain this morning that lasted 30 minutes then resolved. Denies any dysuria,hesitancy, fevers, chills and flank pain. Patient denies N/V/D and constipation. CT ABD IMPRESSION: 1. Mildly prominent fluid-filled distended loops of small bowel with subtle associated mesenteric vasculature engorgement and haziness that could be seen in the context of gastroenteritis. 2. Normal appendix. 3. Multiple liver lesions, some measuring higher than simple fluid in attenuation, not consistent with simple cysts, and others that are too small to characterize. In a patient of this age, these most likely represent benign lesions such as hemangiomas, however further characterization with outpatient MRI abdomen with and without IV contrast is recommended. Patient reports may be moving [place] of [place] in [place] orders and referrals placed urgently. [facility] Surgical History Hx of hand surgery Hx of section Family History (Updated 07/06/23 @ 13:12 by CLARITA Stein) Maternal Grandmother Diabetes Hypertension Social History Alcohol intake: never Patient Tobacco Use Status: Never used Tobacco e-Cigarette/Vaping Use: Never Used Second Hand Smoke Exposure: No service: No Current occupational status: employed Current occupational exposures/hazards: No (right handed) Sexual orientation: Straight/Heterosexual Gender identity: Female Cognitive needs: No Hearing needs: No Vision needs: No Questionnaire Thrive Questionnaire Date Thrive assessed: 04/29/23 KEV-7 AMB Questionnaire KEV-7 Date KEV - 7 assessed: 04/29/23 Source: Developed by Drs. Jim Simon, Nicole Herrera, Anil Whitmore and colleagues, with an educational melissa from [employer]. Review of Systems Const Denies chills, Denies fatigue, Denies fever(s) and Denies poor appetite Eyes Denies no additional complaints ENT Reports Normal hearing present Card Denies chest pain, Denies syncope, Denies rapid heart rate and Denies dyspnea Resp Denies cough and Denies dyspnea GI Denies change in stool character, Denies constipation, Denies diarrhea, Denies nausea and Denies vomiting Denies urinary frequency, Denies dysuria, Denies urinary hesitancy and Reports urinary urgency Neuro Reports Normal hearing present, Denies confusion and Denies syncope Psych Denies confusion Endo Denies fatigue Physical exam (Primary Care) Vital Signs: Last Vital Signs Pulse 58 07/06/23 13:13 BP 110/70 07/06/23 13:13 Pulse Ox 98 07/06/23 13:13 Oxygen Delivery Method Room Air 07/06/23 13:13 BMI result Body Mass Index 27.0 Tobacco/Smoking Status: Tobacco use Status Tobacco use date assessed 07/06/23 07/06/23 13:13 Patient Tobacco Use Status Never used Tobacco 07/06/23 13:13 e-Cigarette/Vaping Use Never Used 07/06/23 13:13 Thrive Assessment: Date of Thrive Assessment Date Thrive assessed 04/29/23 07/06/23 13:13 Const General: No confusion Orientation/consciousness: No confusion HENMT Head: Yes normocephalic and Yes atraumatic Eyes Conjunctivae: conjunctivae normal Chest Chest palpation & inspection: normal inspection of the chest Resp Effort & Inspection: normal respiratory effort Auscultation: clear to auscultation bilaterally, no crackles, no rhonchi and no wheezes Cardio Rate: regular rate Rhythm: regular rhythm Heart sounds: S1 normal heart sound present and S2 normal heart sound present GI Inspection: Yes normal to inspection Palpation (GI): Soft to palpation, nontender and no hepatosplenomegaly Bimanual exam- vagina & uterus: no cervical motion tenderness Neuro General: No confusion Cranial nerves: Yes Normal hearing present Extrem General: No edema Assessment and Plan Assessment & Plan (1) Liver lesion: Comment: multiple liver lesions Code(s): K76.9 - Liver disease, unspecified Plan: MRI ABD with and without contrast ordered urgently. Referral entered to GI. (2) UTI symptoms: Code(s): R39.9 - Unspecified symptoms and signs involving the genitourinary system Plan: U/C + for ecoli, Bactrim sent to patients pharmarcy for trt of UTI. Plan Keep scheduled follow up with pcp or follow up sooner if needed. Orders: Orders MR abdomen wo/w con 07/06/23 K76.9 - Liver disease, unspecified Referrals Gastroenterology Referral K76.9 - Liver disease, unspecified Medications: New sulfamethoxazole-trimethoprim 800-160 mg (Bactrim DS) 1 tab PO BID 6 tabs 0RF R39.9 - Unspecified symptoms and signs involving the genitourinary system ketoconazole 2% 1 appl topical BID 30 grams 0RF B36.0 - Pityriasis versicolor Coding Level of Care Code Est Pt Level 3 (17212) Diagnoses Liver lesion K76.9 UTI symptoms R39.9
[2023-07-06 13:13] VITALS: BP 110/70; PULSE 58; O2SAT 98; BMI 27.0
== END 2023-07-06 14:20 | disposition home or self-care (01) ==
PROVIDERS: PCP Nurse Practitioner Family; Visit Provider Nurse Practitioner Family
DX: K76.9 Liver disease, unspecified (principal); R39.9 Unspecified symptoms and signs involving the genitourinary system
CPT/HCPCS: 99213